=== PATIENT | male | born 1960 | race Caucasian/White ===

== ENCOUNTER → 2017-08-11 | Outpatient (CLI) | payer MEDICARE, MEDICAID ==
[~2017-08-11] MED LIST: CEFUROXIME AXE250 MG PO; LISINOPRIL/HCTZ1 TA3 FT; PROMETHAZINE D180 ML PO; VOLTAREN75 MG PO
[2017-08-11 14:34] LABS: HEMOGLOBIN 15.2 g/dL (14.1-18.0); LYMPH # 1.7 K/mm3 (0.7-4.5); LYMPH % 25.5 % (10-50)
[2017-08-11 14:57] LABS: BUN 13 mg/dL (7-18)
[2017-08-11 14:59] LABS: GFR (ESTIMATED) 100 ML/MIN (>60)
[2017-08-12 08:40] LABS: HBsAg Screen Negative (Negative); Hep A Ab, IgM Negative (Negative); Hep B Core Ab, IgM Negative (Negative); Hep C Virus Ab <0.1 (0.0-0.9)
== END ==
LOC: LAB 13:34
PROVIDERS: Nurse Practitioner Family
DX: Z00.00 Encounter for general adult medical examination without abnormal findings (principal); I10 Essential (primary) hypertension